=== PATIENT | male | born 1955 | race American Indian/Alaskan Native ===

== ENCOUNTER 2016-06-28 04:17 | Emergency (ER) | payer OTHER ==
[2016-06-28 05:34] LABS: Urine Drugs of Abuse Note Disclamer
[2016-06-28 05:43] LABS: Bilirubin,Urine NEG (Negative); Blood,Urine SM (Negative); Ketones,Urine NEG (Negative); Leukocyte Esterase,Urine NEG (Negative); Mucus,Urine FEW /HPF; Nitrite,Urine NEG (Negative); Protein,Urine <15 mg/dL mg/dL (Negative); Urobilinogen,Urine < 2.0 mg/dL (<2.0)
--- NOTE | 2016-06-28 06:19 | Emergency Department Report ---
ED Psych HPI - General Chief Complaint: Psych Stated Complaint: MH EVAL/TOOTHACHE/DISORIENTED Time Seen by Provider: 06/28/16 06:18 Source: patient, police Mode of arrival: Ambulatory - History of Present Illness Initial Comments: The patient admits to alcohol abuse. Apparently he made some threatening comments to a special police when I believe his called them to go home. He states that he is frustrated about his [facility]. He denies any suicidal intent. He denies any current depression. He is aware of that he was drinking excessively and acting impulsively. He denies any intent to harm others currently. I suspect he has a bit of a posttraumatic stress disorder perhaps related to service. However he is not providing a lot of specific information about his ental health history. The patient is not entirely rational when discussing his history upon my initial examination. He seems to be overly obsessed with his mouth ulcer and not entirely able to concentrate on the reason why police brought him to the emergency department. MD Complaint: other -: minutes(s) Associated Psychiatric Symptoms: other (states situational frustration) Quality: changing over time Improves With: none Worsens With: none Context: recent alcohol abuse Associated Symptoms: denies other symptoms (except related to mouth ulcer and dental problems) Treatments Prior to Arrival: none - Related Data Home Medications Medication Instructions Recorded Confirmed Last Taken Aspirin BABY CHEW TAB 81 mg PO DAILY 06/28/16 06/28/16 Unknown Gabapentin 300 mg PO TID 06/28/16 06/28/16 Unknown Mobic mg PO 06/28/16 Unknown Allergies Allergy/AdvReac Type Severity Reaction Status Date / Time No Known Allergies Allergy Verified 06/28/16 06:45 ED Review of Systems ROS: Stated complaint: MH EVAL/TOOTHACHE/DISORIENTED Other details as noted in HPI Constitutional: denies: chills, fever Eyes: denies: eye pain, eye discharge, vision change ENT: as per HPI. denies: ear pain, throat pain Respiratory: denies: cough, shortness of breath, wheezing Cardiovascular: denies: chest pain, palpitations Endocrine: no symptoms reported Gastrointestinal: denies: abdominal pain, nausea, diarrhea Genitourinary: denies: urgency, dysuria Musculoskeletal: denies: back pain, joint swelling, arthralgia Skin: denies: rash, lesions Neurological: denies: headache, weakness, paresthesias Psychiatric: denies: anxiety, depression Hematological/Lymphatic: denies: easy bleeding, easy bruising ED Past Medical Hx - Past Medical History Hx Psychiatric Treatment: Yes (Depression, PTSD) Additional medical history: BPH, Chronic Back Pain - Surgical History Past Surgical History?: No - Social History Smoking Status: Former Smoker Substance Use Type: None - Medications Home Medications: Home Medications Medication Instructions Recorded Confirmed Last Taken Type Aspirin BABY CHEW TAB 81 mg PO DAILY 06/28/16 06/28/16 Unknown History Gabapentin 300 mg PO TID 06/28/16 06/28/16 Unknown History Mobic mg PO 06/28/16 Unknown History ED Physical Exam - General Limitations: No Limitations General appearance: alert, in no apparent distress - Head Head exam: Present: atraumatic, normocephalic - Eye Eye exam: Present: normal appearance, PERRL, EOMI. Absent: scleral icterus - ENT ENT exam: Present: mucous membranes moist, other (patient does have a periapical abscess associated with some gingival reaction of a frontal incisor with an associated lip ulcer.) - Neck Neck exam: Present: normal inspection. Absent: tenderness, meningismus, lymphadenopathy - Respiratory Respiratory exam: Present: normal lung sounds bilaterally. Absent: respiratory distress - Cardiovascular Cardiovascular Exam: Present: regular rate, normal rhythm. Absent: systolic murmur, diastolic murmur, rubs, gallop - GI/Abdominal GI/Abdominal exam: Present: soft, normal bowel sounds. Absent: distended, tenderness, guarding, rebound, rigid - Rectal Rectal exam: Present: deferred - Extremities Exam Extremities exam: Present: normal inspection - Back Exam Back exam: Present: normal inspection - Neurological Exam Neurological exam: Present: alert, oriented X3, CN II-XII intact. Absent: motor sensory deficit - Psychiatric Psychiatric exam: Present: normal affect, normal mood - Skin Skin exam: Present: warm, dry, intact, normal color. Absent: rash ED Course Vital Signs 06/28/16 06/28/16 06/28/16 04:38 04:40 10:47 Temperature 98.2 F 982 F H Pulse Rate 86 73 Respiratory 16 18 16 Rate Blood Pressure 139/88 Blood Pressure 139/88 110/72 [Left] O2 Sat by Pulse 98 99 99 Oximetry - Reevaluation(s) Reevaluation #1: The patient was seen by Dr. Braxton, psychiatrist. He is obtaining further information about the patient's situation. Disposition will be per Dr. Braxton. 06/28/16 13:25 ED Medical Decision Making - Lab Data Result diagrams: 06/28/16 05:48 06/28/16 05:48 Laboratory Results - last 24 hr 06/28/16 06/28/16 05:17 05:17 Urine Color Straw Urine Turbidity Clear Urine pH 5.0 Ur Specific [place] 1.008 Urine Protein <15 mg/dl Urine Glucose (UA) Neg Urine Ketones Neg Urine Blood Sm Urine Nitrite Neg Urine Bilirubin Neg Urine Urobilinogen < 2.0 Ur Leukocyte Esterase Neg Urine WBC (Auto) 3.0 Urine RBC (Auto) 1.0 U Epithel Cells (Auto) < 1.0 Urine Mucus Few Urine Opiates Screen Presumptive negative Urine Methadone Screen Presumptive negative Ur Barbiturates Screen Presumptive negative Ur Phencyclidine Scrn Presumptive negative Ur Amphetamines Screen Presumptive negative U Benzodiazepines Scrn Presumptive negative Urine Cocaine Screen Presumptive negative U Marijuana (THC) Screen Presumptive negative Drugs of Abuse Note Disclamer Laboratory Results - last 24 hr 06/28/16 06/28/16 06/28/16 05:17 05:17 05:48 WBC RBC Hgb Hct MCV MCH MCHC RDW Plt Count Lymph % (Auto) [place] % (Auto) Eos % (Auto) Baso % (Auto) Lymph # [place] # Eos # Baso # Seg Neutrophils % Seg Neutrophils # Sodium 143 Potassium 3.6 Chloride 104.2 Carbon Dioxide 22 Anion Gap 20 BUN 17 Creatinine 0.7 L Estimated GFR > 60 BUN/Creatinine Ratio 24.28 Glucose 79 Calcium 8.6 Urine Color Straw Urine Turbidity Clear Urine pH 5.0 Ur Specific [place] 1.008 Urine Protein <15 mg/dl Urine Glucose (UA) Neg Urine Ketones Neg Urine Blood Sm Urine Nitrite Neg Urine Bilirubin Neg Urine Urobilinogen < 2.0 Ur Leukocyte Esterase Neg Urine WBC (Auto) 3.0 Urine RBC (Auto) 1.0 U Epithel Cells (Auto) < 1.0 Urine Mucus Few Urine Opiates Screen Presumptive negative Urine Methadone Screen Presumptive negative Ur Barbiturates Screen Presumptive negative Ur Phencyclidine Scrn Presumptive negative Ur Amphetamines Screen Presumptive negative U Benzodiazepines Scrn Presumptive negative Urine Cocaine Screen Presumptive negative U Marijuana (THC) Screen Presumptive negative Drugs of Abuse Note Disclamer 06/28/16 05:48 WBC 6.1 RBC 5.17 H Hgb 16.1 H Hct 48.8 H MCV 94 MCH 31 MCHC 33 RDW 13.2 Plt Count 181 Lymph % (Auto) 31.4 [place] % (Auto) 5.0 Eos % (Auto) 1.3 Baso % (Auto) 0.5 Lymph # 1.9 [place] # 0.3 Eos # 0.1 Baso # 0.0 Seg Neutrophils % 61.8 Seg Neutrophils # 3.7 Sodium Potassium Chloride Carbon Dioxide Anion Gap BUN Creatinine Estimated GFR BUN/Creatinine Ratio Glucose Calcium Urine Color Urine Turbidity Urine pH Ur Specific [place] Urine Protein Urine Glucose (UA) Urine Ketones Urine Blood Urine Nitrite Urine Bilirubin Urine Urobilinogen Ur Leukocyte Esterase Urine WBC (Auto) Urine RBC (Auto) U Epithel Cells (Auto) Urine Mucus Urine Opiates Screen Urine Methadone Screen Ur Barbiturates Screen Ur Phencyclidine Scrn Ur Amphetamines Screen U Benzodiazepines Scrn Urine Cocaine Screen U Marijuana (THC) Screen Drugs of Abuse Note Laboratory Results - last 24 hr 06/28/16 06/28/16 06/28/16 05:17 05:17 05:48 WBC RBC Hgb Hct MCV MCH MCHC RDW Plt Count Lymph % (Auto) [place] % (Auto) Eos % (Auto) Baso % (Auto) Lymph # [place] # Eos # Baso # Seg Neutrophils % Seg Neutrophils # Sodium 143 Potassium 3.6 Chloride 104.2 Carbon Dioxide 22 Anion Gap 20 BUN 17 Creatinine 0.7 L Estimated GFR > 60 BUN/Creatinine Ratio 24.28 Glucose 79 Calcium 8.6 Urine Color Straw Urine Turbidity Clear Urine pH 5.0 Ur Specific [place] 1.008 Urine Protein <15 mg/dl Urine Glucose (UA) Neg Urine Ketones Neg Urine Blood Sm Urine Nitrite Neg Urine Bilirubin Neg Urine Urobilinogen < 2.0 Ur Leukocyte Esterase Neg Urine WBC (Auto) 3.0 Urine RBC (Auto) 1.0 U Epithel Cells (Auto) < 1.0 Urine Mucus Few Urine Opiates Screen Presumptive negative Urine Methadone Screen Presumptive negative Ur Barbiturates Screen Presumptive negative Ur Phencyclidine Scrn Presumptive negative Ur Amphetamines Screen Presumptive negative U Benzodiazepines Scrn Presumptive negative Urine Cocaine Screen Presumptive negative U Marijuana (THC) Screen Presumptive negative Drugs of Abuse Note Disclamer Plasma/Serum Alcohol 06/28/16 06/28/16 05:48 05:48 WBC 6.1 RBC 5.17 H Hgb 16.1 H Hct 48.8 H MCV 94 MCH 31 MCHC 33 RDW 13.2 Plt Count 181 Lymph % (Auto) 31.4 [place] % (Auto) 5.0 Eos % (Auto) 1.3 Baso % (Auto) 0.5 Lymph # 1.9 [place] # 0.3 Eos # 0.1 Baso # 0.0 Seg Neutrophils % 61.8 Seg Neutrophils # 3.7 Sodium Potassium Chloride Carbon Dioxide Anion Gap BUN Creatinine Estimated GFR BUN/Creatinine Ratio Glucose Calcium Urine Color Urine Turbidity Urine pH Ur Specific [place] Urine Protein Urine Glucose (UA) Urine Ketones Urine Blood Urine Nitrite Urine Bilirubin Urine Urobilinogen Ur Leukocyte Esterase Urine WBC (Auto) Urine RBC (Auto) U Epithel Cells (Auto) Urine Mucus Urine Opiates Screen Urine Methadone Screen Ur Barbiturates Screen Ur Phencyclidine Scrn Ur Amphetamines Screen U Benzodiazepines Scrn Urine Cocaine Screen U Marijuana (THC) Screen Drugs of Abuse Note Plasma/Serum Alcohol 0.24 H Critical care attestation.: If time is entered above; I have spent that time in minutes in the direct care of this critically ill patient, excluding procedure time. ED Disposition Clinical Impression: Carious teeth, Mouth ulcer Alcohol intoxication Qualifiers: Complication of substance-induced condition: uncomplicated Qualified Code(s): F10.120 - Alcohol abuse with intoxication, uncomplicated Disposition: DISCHARGED TO HOME OR SELFCARE Is pt being admited?: No Does the pt Need Aspirin: No Condition: Stable Referrals: PRIMARY CARE, [Primary Care Provider] - 3-5 Days
[2016-06-28 06:28] LABS: Anion Gap 20 mmol/L; BUN/Creatinine Ratio 24.28; Basophils % (Auto) 0.5 % (0.0-1.8); Blood Urea Nitrogen 17 mg/dL (9-20); Calcium 8.6 mg/dL (8.4-10.2); Carbon Dioxide 22 mmol/L (22-30); Chloride 104.2 mmol/L (98-107); Eosinophils % (Auto) 1.3 % (0.0-4.3); Glucose 79 mg/dL (75-100); Hematocrit 48.8 % (35.5-45.6); Hemoglobin 16.1 gm/dl (11.8-15.2); Mean Corpuscular HGB Conc 33 % (32-34); Mean Corpuscular Hemoglobin 31 pg (28-32); Mean Corpuscular Volume 94 fl (84-94); Platelet Count 181 K/mm3 (140-440); Potassium 3.6 mmol/L (3.6-5.0); Red Blood Count 5.17 M/mm3 (3.65-5.03); Red Cell Distribution Width 13.2 % (13.2-15.2); Sodium 143 mmol/L (137-145); White Blood Count 6.1 K/mm3 (4.5-11.0)
[2016-06-28] MEDS ORDERED: LIDOCAINE VISCOUS 2% PO ONE (06:43)
[2016-06-28] MEDS ORDERED: VEETIDS PO ONE (06:44)
[2016-06-28] MEDS ORDERED: MILK OF MAGNESIA PO PRN (06:45)
[2016-06-28] MEDS ORDERED: TYLENOL PO PRN (06:45)
[2016-06-28] MEDS ORDERED: ALUM-MAG HYDROX-SIMETH 200-200-20MG/5ML PO PRN (06:45)
[2016-06-28] MEDS ORDERED: LIDOCAINE VISCOUS 2% ONE (11:23)
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
--- NOTE | 2016-06-28 15:37 | Event Note ---
Date: 06/28/16 Discussed with patient suicidality and medication induced sean with patient referencing antidepressants.
[2016-06-28] MEDS: REMERON PO SCH (22:16)
[2016-06-28] MEDS: NEURONTIN PO SCH (22:41)
[2016-06-29] MEDS: MOBIC PO SCH (10:19)
[2016-06-29] MEDS: FLOMAX PO SCH (10:19)
[2016-06-29] MEDS: ASPIRIN PO SCH (10:19)
[2016-06-29] MEDS: NEURONTIN PO SCH ×2 (10:20→22:01)
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
[2016-06-29] MEDS: REMERON PO SCH (22:00)
[2016-06-30 09:16] VITALS: BP 123/76
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
[2016-06-30] MEDS: FLOMAX PO SCH (11:55)
[2016-06-30] MEDS: ASPIRIN PO SCH (11:55)
[2016-06-30] MEDS: NEURONTIN PO SCH (11:55)
[2016-06-30] MEDS: MOBIC PO SCH (11:55)
== END 2016-06-30 15:24 | disposition home or self-care (01) ==
LOC: EEVIPCON 04:17 → ED 04:17
DX: K02.9 Dental caries, unspecified (principal); K12.1 Other forms of stomatitis; F10.120 Alcohol abuse with intoxication, uncomplicated; F32.9 Major depressive disorder, single episode, unspecified; F43.10 Post-traumatic stress disorder, unspecified; Z87.891 Personal history of nicotine dependence
CPT/HCPCS: 36415; 80048; 80307; 81001; 85025; 99284; A9270; G0480; 80320